=== PATIENT | female | born 1965 | race Caucasian/White ===

== ENCOUNTER 2023-08-18 08:55 | Emergency (ER) | payer OTHER, SELFPAY ==
[2023-08-18 09:17] VITALS: BP 127/90; PULSE 84; RESP 16; TEMP 37.4; O2SAT 100
--- NOTE | 2023-08-18 09:52 | ED.URI ---
HPI - URI/Sore Throat General Chief Complaint: Upper Respiratory Infection Stated Complaint: congestion,fever,throat/ear pain Time Seen by Provider: 08/18/23 09:52 Source: patient Mode of arrival: ambulatory Limitations: no limitations History of Present Illness HPI Narrative: 58-year-old female presents with complaint of nasal congestion, postnasal drainage, cough, sore throat for the past 10 days. Reports symptoms were resolving and the last 2 days progressively worse with low-grade fever, chills and body aches. No chest pain or shortness of breath. Taking [id number] sinus medication to treat symptoms. All systems reviewed and negative except as noted. Related Data Home Medications Medication Instructions Recorded Confirmed amlodipine 2.5 mg tablet 2.5 mg PO DAILY 08/18/23 08/18/23 sumatriptan succinate 100 mg tablet See Rx Instructions .Route .COMPLEX 08/18/23 08/18/23 Allergies Allergy/AdvReac Type Severity Reaction Status Date / Time Penicillins Allergy Unknown Other Verified 08/18/23 09:10 NKFA Allergy Unknown Other Uncoded 08/18/23 09:10 ERYTHROMYCIN (Generic Allergy Other Uncoded 08/18/23 09:10 Allergy) MACROLIDES Allergy Other Uncoded 08/18/23 09:10 Review of Systems Review of Systems: CONSTITUTIONAL: reports fever, chills, fatigue. EYES: Denies visual changes, redness, or discharge. ENT: Reports rhinorrhea, congestion, sore throat. Denies otalgia. CARDIOVASCULAR: Denies chest pain, palpitations, or edema. RESPIRATORY: reports cough . Denies dyspnea. GASTROINTESTINAL: Denies abdominal pain, nausea, vomiting, or diarrhea. GENITOURINARY: Denies dysuria or hematuria. SKIN: Denies rash or itching. MUSCULOSKELETAL: Denies back pain, joint pain reports myalgia. NEUROLOGIC: Reports headache. Denies numbness, or weakness. PSYCHIATRIC: Denies anxiety or depression. All other systems reviewed are negative, except as documented in HPI. PMFSH Comments At time of signature, agree with nursing past medical, surgical, social and family history. There is no relevant family history pertinent to the presenting complaint. Exam Narrative: GENERAL: This is a well-nourished, well-developed patient, in no apparent distress. HEAD: normocephalic, atraumatic. EYES: PERRL. Sclera clear/white. Vision is grossly intact. EARS: External ears normal, auditory canals clear and without drainage, fluid TMs without erythema or perforation. Hearing grossly intact. NOSE: External nose normal with Moderate congestion, renal nasal drainage with erythema and swelling to bilateral nares. THROAT: Mucous membranes moist, Erythema postnasal drainage. NECK: Neck supple, non-tender without lymphadenopathy, masses or thyromegaly. CARDIOVASCULAR: Regular rate and rhythm without murmurs, gallops, or rubs. RESPIRATORY: Clear to auscultation. Breath sounds equal bilaterally. No wheezes, rales, or rhonchi. SKIN: warm, Dry, intact with no suspicious lesions or rash, good texture and turgor. NEURO: awake, alert, and oriented to person, place and time. There were no obvious focal neurologic abnormalities. EXTREMITIES: No joint tenderness, effusion, or edema noted. Course Course Level of Care: Express Care Visit Vital Signs Vital signs: Vital Signs Temperature 37.4 C 08/18/23 09:17 Pulse Rate 84 08/18/23 09:17 Respiratory Rate 16 08/18/23 09:17 Blood Pressure 127/90 08/18/23 09:17 Pulse Oximetry 100 08/18/23 09:17 Oxygen Delivery Room Air 08/18/23 09:17 Temperature 37.4 C 08/18/23 09:17 Pulse Rate 84 08/18/23 09:17 Respiratory Rate 16 08/18/23 09:17 Blood Pressure 127/90 08/18/23 09:17 Pulse Oximetry 100 08/18/23 09:17 Oxygen Delivery Room Air 08/18/23 09:17 Reviewed MDM - URI/Sore Throat MDM Narrative Medical decision making narrative: Patient is aware of diagnosis, understands and agrees to treatment plan. Anticipatory guidance given. Patient agrees
== END 2023-08-18 10:19 | disposition home or self-care (01) ==
PROVIDERS: Emergency Provider Nurse Practitioner Family
DX: J01.90 Acute sinusitis, unspecified (principal); Z20.822 Contact with and (suspected) exposure to COVID-19; I10 Essential (primary) hypertension
CPT/HCPCS: 87081; 87426; 87804; 87880; 99213; C9803; G0463